=== PATIENT | male | born 1950 | race Caucasian/White ===

== ENCOUNTER 2016-08-17 07:50 | Day surgery (SDC) | payer MEDICARE, OTHER ==
--- NOTE | ~2016-08-17 | EGD ---
EGD REPORT [facility] [address] [id number] NAME: YAW HOYT : [birth year] STATUS : REG [facility]#: [id number] AGE: 66 ADM/REG DATE : 08/17/16 MR#: [id number] REPORT SERV DATE: 08/17/16 DICTATED BY: SHERLEY JOSE DATE: 08/17/16 REPORT STATUS : Draft [facility]ANS[facility]: [facility] DATE: 08/17/16 End[facility] Center Patient Name: Yaw Hoyt Date of : 1950 Attending MD: SHERLEY JOSE, Procedure Date No Time: 08/17/2016 Procedure: Upper EUS Indications: Abnormal abdominal PET scan, Dysphagia (pt requesting dilatation) Referring MD: MARGRET BURTON MD, SUSANNAH KOEHLER Medicines: Monitored Anesthesia Care Complications: No immediate complications. Estimated blood loss: None. Procedure: After obtaining informed consent, the endoscope was passed under direct vision. Throughout the procedure, the patient's blood pressure, pulse, and oxygen saturations were monitored continuously. The GIF [id number] was introduced through the mouth, and advanced to the second part of duodenum. The Endoscope was introduced through the mouth, and advanced to the second part of duodenum. Findings: Endoscopic Finding : An esophago-gastric anastomosis was found in the middle third of the esophagus. A medium-sized, fungating polypoid mass with was found at the esophageal anastomosis. The mass was partially obstructing and circumferential. Biopsies were taken with a cold forceps for histology. Verification of patient identification for the specimen was done. Estimated blood loss was minimal. A TTS dilator was passed through the scope. Dilation with a 12-13.5-15 mm balloon (to a maximum balloon size of 15 mm) dilator was performed. The exam of the stomach was otherwise normal. The examined duodenum was endoscopically normal. Endosonographic Finding : A hypoechoic mass was found in the esophagus. The mass was encountered at 29 cm from the incisors and extended to 31 cm. The lesion was partially circumferential (involving 50% of the lumen). The endosonographic borders were well-defined. The mass measured up to 31 mm in thickness. There was sonographic evidence suggesting invasion into the submucosa (Layer 3). No lymphadenopathy seen. There was no sign of significant endosonographic abnormality in the entire pancreas. EGD REPORT [address] [place]. [address] NAME: YAW HOYT : [birth year] STATUS : REG [facility]#: [id number] AGE: 66 ADM/REG DATE : 08/17/16 MR#: [id number] REPORT SERV DATE: 08/17/16 DICTATED BY: SHERLEY JOSE DATE: 08/17/16 REPORT STATUS : Draft [facility]ANSCRIBED BY: [facility] DATE: 08/17/16 Impression: - An esophago-gastric anastomosis was found. 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 Biopsied. Dilated. - Normal examined duodenum. - A mass was found. - There was no sign of significant pathology in the entire pancreas. Recommendation: - Return to previous diet. - Continue present medications. - Await path results. - Return to referring physician. Procedure Code(s): --- Professional --- 04909, Esophagogastroduodenoscopy, flexible, transoral; with endoscopic ultrasound examination, including the esophagus, stomach, and either the duodenum or a surgically altered stomach where the jejunum is examined distal to the anastomosis 45738, Esophagogastroduodenoscopy, flexible, transoral; with transendoscopic balloon dilation of esophagus (less than 30 mm diameter) Diagnosis Code(s): --- Professional --- Z98.0, Intestinal bypass and anastomosis status D49.0, Neoplasm of unspecified behavior of digestive system K22.8, Other specified diseases of esophagus R93.5, Abnormal findings on diagnostic imaging of other abdominal regions, including retroperitoneum R13.10, Dysphagia, unspecified CPT copyright 2013 [employer] [place] [employer]. All rights reserved. The codes documented in this report are preliminary and upon gear machine operator general review may be revised to meet current compliance requirements. SHERLEY JOSE, 08/17/2016 9:59 AM Number of Addenda: 0 Note Initiated On: 08/17/2016 9:23 AM Scope Withdrawal Time 0 hours 0 minutes 0 seconds [id number] [place] [address]
[~2016-08-17 07:50] MED LIST: B12250T PO; BC POWDER PO; CARTIA XT240 MG/24 PO; CORDARONE PO; COUMADIN6 MG PO; COZ25 PO; DIGITEK0.25 MG PO; FOLIC ACID400 MC1 PO; GLUCOPHAGE1000 MG PO; GLUCOTRO10 PO; GLUCPH PO; GOODY'S EX-STR1 EAC1 PO; HEMOCYTE324 MG PO; JANTOVEN6 MG PO; L20 PO; LANTUS SC; LEVEMFLXPN SC; LIPITOR10 PO; LYRICA75 PO; NEUR300 PO; NORCO1 TAB PO; PROVHFA INH; SPIRIVA INH; VITAMIN D1000 UNI1 PO
[2016-08-17 08:29] LABS: BUN (BLOOD UREA NITROGEN) 12 MG/DL (6-23); CHLORIDE, SERUM 102 MMOL/L (96-112); GFR AFRICAN AMERICAN 90 ML/MIN (>=60); GFR NON AFRICAN AMERICAN 78 ML/MIN (>=60); GLUCOSE, SERUM 117 MG/DL (60-99); POTASSIUM, SERUM 3.9 MMOL/L (3.5-5.3); SODIUM, SERUM 139 MMOL/L (135-148)
[2016-08-17 08:30] LABS: CALCIUM, SERUM 9.6 MG/DL (8.5-10.4); CO2 (CARBON DIOXIDE) 33 MMOL/L (24-34)
== END 2016-08-17 23:59 | disposition home or self-care (01) ==
LOC: DMU 07:50
PROVIDERS: Anesthesiology; Internal Medicine Gastroenterology
PROC: 0D727ZZ Dilation of Middle Esophagus, Via Natural or Artificial Opening (ICD-10-PCS; 2016-08-17)
PROC: 0DB28ZX Excision of Middle Esophagus, Via Natural or Artificial Opening Endoscopic, Diagnostic (ICD-10-PCS; principal; 2016-08-17 09:00)
DX: C15.4 Malignant neoplasm of middle third of esophagus (principal); K22.8 Other specified diseases of esophagus; R93.5 Abnormal findings on diagnostic imaging of other abdominal regions, including retroperitoneum; R13.10 Dysphagia, unspecified; Z98.0 Intestinal bypass and anastomosis status; I48.91 Unspecified atrial fibrillation; I10 Essential (primary) hypertension; J44.9 Chronic obstructive pulmonary disease, unspecified; I49.9 Cardiac arrhythmia, unspecified; G57.90 Unspecified mononeuropathy of unspecified lower limb; E11.9 Type 2 diabetes mellitus without complications; Z85.01 Personal history of malignant neoplasm of esophagus; Z92.21 Personal history of antineoplastic chemotherapy; Z92.3 Personal history of irradiation; Z98.41 Cataract extraction status, right eye; Z98.42 Cataract extraction status, left eye; Z96.1 Presence of intraocular lens; Z87.891 Personal history of nicotine dependence
CPT/HCPCS: 80048; 88305; C1725; C1726